=== PATIENT | female | born 1960 | race African-American/Black ===

== ENCOUNTER 2017-09-06 08:11 | Emergency (ER) | payer OTHER ==
[~2017-09-06] VITALS: Ht 160 cm; Wt 62.6 kg
[~2017-09-06 08:11] MED LIST: ADVAIR 500-501 EACH INH; ADVAIR DISKUS1 UNIT INH; ALBUTEROL0.09 MG/A1 INH; ALBUTEROL2.5 MG/3 M INH/SOL; AUGMENTIN 875875 MG PO; BENADRYL 50 MG50 MG PO; CLARITIN10 M1 PO; EPIPEN ADULT A0.3 MG IM; FISH OIL 1,2001 EAC2 PO; FOLIC ACID1 M1 PO; HAIR, SKIN & N1 EACH PO; MEDROL4 M1 PO; PANTOPRAZOLE SO40 M1 PO; PEPCID20 MG PO; PEPCID40 M1 PO; PERCOCET 5-3251 EACH PO; PREDNISONE 10MG10 M1 PO; PREDNISONE10 M2 PO; PREDNISONE10 MG PO; PROAIR HFA8.5 GM INH; SINGULAIR10 MG PO; VALTREX1000 MG PO; VITAMIN D31000 I1 PO; ZOFRAN ODT4 M1 SL; ZOFRAN4 M1 SL; ZOFRAN4 M2 PO; ZOFRAN4 M2 SL
[2017-09-06] MEDS ORDERED: MECLIZINE HCL12.5 M1 PO (08:53)
--- NOTE | 2017-09-06 09:18 | RADIOLOGY REPORT ---
EXAMINATION: XR CHEST CLINICAL INFORMATION: Chest pain. Pneumonia. COMPARISON: None TECHNIQUE: 2 views of the chest were obtained. FINDINGS: Cardiomediastinal silhouette is within normal limits. Lungs are clear. Bony thorax is intact. IMPRESSION: No acute pulmonary disease.
--- NOTE | 2017-09-06 09:33 | ED GI/GU/ABDOMINAL COMPLAINT ---
History of Present Illness General Chief Complaint: Nausea, Vomiting, Diarrhea Stated Complaint: NVD+/DIZZY Source: patient, family Exam Limitations: no limitations Vital Signs & Intake/Output Vital Signs & Intake/Output Vital Signs Date Time Temp Pulse Resp B/P B/P Pulse O2 O2 Flow FiO2 Mean Ox Delivery Rate 09/06 1629 98.0 68 18 132/74 97 Room Air 09/06 1435 97.5 62 18 142/82 100 Room Air 09/06 0854 98 Room Air 09/06 0813 98.5 100 16 144/92 99 Room Air Allergies Coded Allergies: ketorolac (From Toradol) (Severe, HIVES 09/02/15) nut - unspecified (Severe, ANAPHYLAXIS 09/02/15) venom-honey bee (bee venom (honey bee)) (Severe, ANAPHYLAXIS 09/02/15) codeine (Intermediate, NAUSEA 09/02/15) Reconcile Medications Albuterol Sulfate 2.5 MG/3 ML (0.083 %) VIAL.NEB 1 Vial INH/SYDNEY AD PRN ASTHMA (Reported) Albuterol Sulfate (Proair Hfa) 90 MCG HFA.AER.AD 2 PUF INH AD PRN ASTHMA ( Reported) Fluticasone/Salmeterol (Advair 500-50 Diskus) 500 MCG-50 MCG/DOSE BLST.W.DEV 1 PUF INH BID ASTHMA (Reported) Folic Acid 1 MG TABLET 1 TAB PO DAILY SUPPLEMENT (Reported) Meclizine HCl 12.5 MG TABLET 1 TAB PO BID PRN DIZZINESS (Reported) Multivitamin With Minerals (Hair, Skin & Nails) 1 EACH TABLET 1 TAB PO DAILY SUPPLEMENT (Reported) [place]-3S/Dha/Epa/Fish Oil (Fish Oil 1,200 MG Softgel) (Unknown Strength) CAPSULE (Unknown Dose) PO DAILY SUPPLEMENT (Reported) Ondansetron (Zofran Odt) 4 MG TAB.RAPDIS 1 TAB SL TID PRN nausea Ondansetron (Zofran Odt) 4 MG TAB.RAPDIS 1 TAB SL TID Nausea and Vomiting Oxycodone HCl/Acetaminophen (Percocet 5-325 MG Tablet) 5 MG-325 MG TABLET 1 TAB PO BID PRN pain Pantoprazole Sodium 40 MG TABLET. 1 TAB PO DAILY GI (Reported) Triage Note: 56 YEAR OLD FEMALE STATES THAT SHE HAS A HISTORY OF VERTIGO AND THAT SHE HAS HAD N/V/ AND DIZZINESS SINCE YESTERDAY. TOOK PRESCRIBED ANTIVERT WITH NO RELIEF Triage Nurses Notes Reviewed? yes ? N Is pt currently ? No HPI: 56 yo F PMH Asthma, Vertigo presenting with N/V/D. Nausea with 7-8 episodes of NBNB emesis, 15+ episodes of watery non-bloody diarrhea since yesterday. Some epigasrtic pain/chest pressure yesterday evening for 3-4 hrs, self resolved, absent currently, non-pleuritic, non-exertional, non-radiating, patient states she has had similar pain in the past from hiatial hernia. Dizziness since this morning, described as lightheadedness but also "room spinning", similar to previous vertigo, took meclizine without relief. Associated fatigue, diffuse weakness, mild headaches, without neck pain, or focal neurologic Sx. Denies fevers, chills, palpitations, SOB, urinary Sx, vaginal Sx. (Zelalem Caal MD) Past History Travel History Traveled to [place] past 21 day No Medical History Any Pertinent Medical History? 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 Yes (Zelalem Caal MD) Review of Systems Review of Systems Constitutional: Reports: no symptoms. EENTM: Reports: no symptoms. Respiratory: Reports: no symptoms. Cardiovascular: Reports: see HPI. GI: Reports: see HPI. Genitourinary: Reports: no symptoms. Musculoskeletal: Reports: no symptoms. Skin: Reports: no symptoms. Neurological/Psychological: Reports: no symptoms. Hematologic/Endocrine: Reports: no symptoms. Immunologic/Allergic: Reports: no symptoms. All Other Systems: Reviewed and Negative (Zelalem Caal MD) Physical Exam Physical Exam General Appearance: well developed/nourished, alert, mild distress Head: atraumatic Eyes: Bilateral: PERRL, EOMI. Ears, Nose, Throat, Mouth: moist mucous membrane Neck: normal inspection, full range of motion, no midline tenderness Respiratory: normal breath sounds, no respiratory distress, lungs clear Cardiovascular: tachycardia Gastrointestinal: soft, non-tender Comments: Abdomen: Soft and non-TTP throughout Neurologic: Cranial nerves II through XII intact as tested, no pronator drift, muscle strength 5 out of 5 in bilateral upper and lower extremities, no sensory deficits, [id number] and umfh-[id number] testing are unremarkable Core Measures ACS in differential dx? Yes Sepsis Present: No Sepsis Focused Exam Completed? No (Ten ESPINOZA,Zelalem) Progress Differential Diagnosis: AAA, AMI, appendicitis, biliary colic, bowel obstruction , colon cancer, cholecystitis, diverticulitis, ectopic , endometritis, esophageal varices, gastritis, hepatitis, hernia, hemorrhoids, ischemic bowel, inflamm bowel dis, intrauterine , kidney stone, Laurie-Robbie tear, ovarian cyst, ovarian torsion, pancreatitis, PID/cervicitis, peptic ulcer, PUD/ GERD, perforated viscous, SBO, threatened AB, UTI/pyelo Plan of Care: Orders Procedure Date/time Status Add-on Test (ER Only) 09/06 1512 Active Add-on Test (ER Only) 09/06 1511 Active TROPONIN LEVEL 09/06 1448 Complete Add-on Test (ER Only) 09/06 1231 Active LACTIC ACID 09/06 1138 Complete ED- NURSING MISC 09/06 1044 Active LIPASE 09/06 0932 Complete TROPONIN LEVEL 09/06 0852 Complete COMPREHENSIVE METABOLIC PANEL 09/06 0852 Complete CBC WITHOUT DIFFERENTIAL 09/06 0852 Complete EKG 09/06 0852 Active Laboratory Tests 09/06/17 1505: Troponin I < 0.01 09/06/17 1138: Lactic Acid 2.0 09/06/17 1138: Anion Gap 8, Estimated GFR > 60, BUN/Creatinine Ratio 13.8, Glucose 99, Lactic Acid 2.1, Calcium 9.1, Total Bilirubin 0.5, AST 15, ALT 21, Alkaline Phosphatase 38, Troponin I < 0.01, Total Protein 6.5, Albumin 3.5, Globulin 3.0, Albumin/ Globulin Ratio 1.2, Lipase 75 09/06/17 0932: CBC w Diff NO MAN DIFF REQ, RBC 4.72, MCV 86.0, MCH 29.1, MCHC 33.8, RDW 14.6 H , MPV 8.8, Gran % 76.6 H, Lymphocytes % 13.6 L, Monocytes % 8.6, Eosinophils % 1.0, Basophils % 0.2, Absolute Granulocytes 9.0 H, Absolute Lymphocytes 1.6, Absolute Monocytes 1.0 H, Absolute Eosinophils 0.1, Absolute Basophils 0 09/06/17 0910: Lipase Cancelled Physician MDM: 56 yo F PMH Asthma, Vertigo presenting with N/V/D. HR 100s, otherwise VSS, exam as above. DDx: Gastroenteritis, ACS, Peripheral vertigo, low concern for surgical abdominal pathology, central vertigo, PE, aortic pathology. ECG sinus rhythm, non-ischemic. Delta troponins x 2 negative. CBC with mild leukocytosis. CMP unremarkable. CXR without focal consolidation or airspace disease. Given 2L NS, zofran with marked improvement in nausea and subjective status per patient. On re-examination patient resting comfortably, ambulatory with an even gait without assistance. Discussed observation admission for IV rehydration, patient adamantly declined, would prefer to manage her symptoms at home. Discharged with return precautions, Zofran Rx, plan for close f/u with PMD. Initial ED EKG: normal sinus rhythm (Ten ESPINOZA,Zelalem) Departure Departure Disposition: HOME OR SELF CARE Condition: Stable Clinical Impression Primary Impression: Nausea and vomiting Secondary Impressions: Diarrhea, Vertigo Referrals: Unknown Additional Instructions: Take zofran for nausea and vomiting. Drink plenty of fluids. Follow up with Departure Forms: Customer Survey General Discharge Information Prescriptions: Current Visit Scripts Ondansetron (Zofran Odt) 1 TAB SL TID #20 TAB (Ten ESPINOZA,Zelalem) Resident Co-Sign Statement Statement: ED Attending supervision documentation- [] I saw and evaluated the patient. I have also reviewed all the pertinent lab results and diagnostic results. I agree with the findings and the plan of care as documented in the Resident's documentation. [x] I have reviewed the ED Record and agree with the Resident's documentation. [] Additions or exceptions (if any) to the Resident's note and plan are summarized below: [] (Cyrus Hancock DO)
[2017-09-06 09:50] LABS: ABSOLUTE BASOPHIL COUNT 0 /CUMM (0.0-0.2); ABSOLUTE EOSINOPHIL COUNT 0.1 /CUMM (0.0-0.7); ABSOLUTE LYMPH COUNT 1.6 /CUMM (1.2-3.4); BASOPHIL % 0.2 % (0.0-2.0); GRANULOCYTE % 76.6 % (42.2-75.2); HEMATOCRIT 40.6 % (37-47); MEAN CORPUSCULAR HGB 29.1 PG (27.0-31.0); MEAN CORPUSCULAR HGB CONC 33.8 G/DL (33.0-37.0); MEAN PLATELET VOLUME 8.8 FL (7.4-10.4); PLATELET COUNT 292 /CUMM (130-400); RBC DISTRIBUTION WIDTH 14.6 % (11.5-14.5); RED BLOOD CELL CT 4.72 /CUMM (4.20-5.40); WHITE BLOOD CELL COUNT 11.7 /CUMM (4.8-10.8)
[2017-09-06] MEDS ORDERED: ZOFRAN ODT4 M1 SL (15:47)
[2017-09-06 16:29] VITALS: BP 132/74
== END 2017-09-06 16:35 ==
LOC: ERH 08:11
PROVIDERS: Student in an Organized Health Care Education/Training Program
DX: R11.2 Nausea with vomiting, unspecified (principal); R19.7 Diarrhea, unspecified; R42 Dizziness and giddiness; R10.13 Epigastric pain; R07.89 Other chest pain
CPT/HCPCS: 36415; 71046; 93005; 93010; 96361; 96374; 99291; J2405